=== PATIENT | male | born 1975 | race Caucasian/White ===

== ENCOUNTER 2022-07-23 00:57 | Inpatient (IN) | payer OTHER ==
[~2022-07-23] VITALS: Ht 188 cm; Wt 117.4 kg
[2022-07-23] VITALS (13 sets, daily range): BP systolic 120–143; BP diastolic 76–103
[2022-07-23 01:37] LABS: Basophils # (auto) 0 10 ^3/uL (0-0.2); Basophils % (auto) 0.3 % (0.0-2.0); Eosinophils # (auto) 0.2 10 ^3/uL (0-0.8); Eosinophils % (auto) 2.4 % (0.0-7.0); Hemoglobin 14.3 g/dL (13.5-17.5); Lymphocytes # (auto) 2.2 10 ^3/uL (0.4-5.4); Lymphocytes % (auto) 27.7 % (10.0-50.0); Mean Corpuscular Hemoglobin 27.3 pg (28.0-32.0); Mean Corpuscular Hgb Conc. 33.1 g/dL (32.0-36.0); Mean Corpuscular Volume 82.3 fL (80.0-100.0); Monocytes # (auto) 0.6 10 ^3/uL (0-1.3); Monocytes % (auto) 7.1 % (0.0-12.0); Neutrophils # (auto) 4.9 10 ^3/uL (1.6-8.6); Neutrophils % (auto) 62.5 % (37.0-80.0); Red Blood Cells 5.23 10^6/uL (4.5-5.90); Red Cell Distribution Width 17.2 % (11.8-14.3); White Blood Cell 7.8 10^3/uL (4.4-10.8)
[2022-07-23 01:51] LABS: Partial Thromboplastin Time 38.1 sec (24.6-33.4)
[2022-07-23 01:57] LABS: Albumin 3.4 g/dL (3.4-5.0); BUN/Creatinine Ratio 20.5 (10.0-20.0); Calcium 9.5 mg/dL (8.5-10.1); Potassium 3.7 mmol/L (3.5-5.1)
[2022-07-23 02:00] LABS: Bilirubin, Total 0.4 mg/dL (0.2-1.0); Total Protein 8.2 g/dL (6.4-8.2)
[2022-07-23] MEDS ORDERED: MAALOX PLUS or MAALOX 30 ML PO ONE (02:00)
[2022-07-23] MEDS ORDERED: PANTOPRAZOLE 40 MG TAB PO ONE (02:00)
[2022-07-23] MEDS ORDERED: LIDOCAINE VISCOUS 2% 15ML UD PO ONE (02:00)
[2022-07-23] MEDS ORDERED: HEPARIN SODIUM (PORCINE) 5000 UNITS/ML 1ML VIAL IV ONE (02:30)
[2022-07-23] MEDS ORDERED: HEPARIN DRIP/D5W 100UNITS/ML 250 ML IV SCH (02:30)
[2022-07-23] MEDS ORDERED: MORPHINE SULFATE INJ 2 MG/ml SYRG IV ONE (02:30)
[2022-07-23] MEDS ORDERED: NITROGLYCERIN 0.4 MG SL TAB SL ONE (02:30)
[2022-07-23] MEDS ORDERED: ONDANSETRON HCL 4 MG/2 ML VIAL IV PRN (02:45)
[2022-07-23] MEDS ORDERED: MORPHINE SULFATE INJ 2 MG/ml SYRG IV PRN (02:45)
[2022-07-23] MEDS ORDERED: NITROGLYCERIN 0.4 MG SL TAB SL PRN (02:45)
[2022-07-23 08:17] LABS: Urine Bacteria NONE SEEN /hpf (None Seen); Urine Blood 2+ /uL (Negative); Urine Hyaline Cast FEW /lpf (0 - 2); Urine Mucus FEW (None Seen); Urine Specific Gravity 1.026 (1.001-1.035); Urine WBC 2 /hpf (0 - 3)
[2022-07-23] MEDS ORDERED: ANGIOMAX 250 MG VIAL IV ONE (09:46)
[2022-07-23] MEDS ORDERED: fentaNYL CITRATE 100 MCG/2 ML VL ONE (09:47)
[2022-07-23] MEDS ORDERED: VERAPAMIL 2.5MG/ML INJ 2ML VIAL IV ONE (09:47)
[2022-07-23] MEDS ORDERED: SODIUM CHL 0.9% 50 ML ONE (09:48)
[2022-07-23] MEDS ORDERED: MIDAZOLAM HCL 2MG/2ML 2ml VIAL (1mg/ml) ONE (09:48)
[2022-07-23] MEDS ORDERED: HEPARIN SODIUM (PORCINE) 5000 UNITS/ML 1ML VIAL ONE (09:48)
[2022-07-23] MEDS ORDERED: LIDOCAINE 2%HCL (LOCAL ANESTH.) INJ 10ml MDV ONE (09:53)
[2022-07-23] MEDS ORDERED: IODIXANOL 320MG/ML 100ML BTL IV ONE (09:53)
[2022-07-23] MEDS ORDERED: EPTIFIBATIDE INJ (2MG/ML) 10ML VIAL IV ONE (10:46)
[2022-07-23] MEDS ORDERED: ASPirin 81 mg TAB ONE (10:51)
[2022-07-23] MEDS ORDERED: TICAGRELOR 90 MG TAB ONE (10:51)
[2022-07-23] MEDS: PANTOPRAZOLE 40 MG/10 ML VIAL INJ IV SCH (14:31)
[2022-07-23] MEDS ORDERED: ALPRAZolam 0.25 MG TAB PO PRN (16:15)
[2022-07-23] MEDS ORDERED: CLOPIDOGREL 300 MG TAB PO ONE (18:00)
[2022-07-23] MEDS: METOPROLOL TARTRATE 25 MG TAB PO SCH (21:43)
[2022-07-24 05:00] VITALS: BP 135/84
[2022-07-24 05:40] LABS: Basophils # (auto) 0 10 ^3/uL (0-0.2); Basophils % (auto) 0.4 % (0.0-2.0); Eosinophils # (auto) 0.2 10 ^3/uL (0-0.8); Hematocrit 44.5 % (41.0-53.0); Hemoglobin 14.7 g/dL (13.5-17.5); Lymphocytes # (auto) 1.8 10 ^3/uL (0.4-5.4); Lymphocytes % (auto) 24.5 % (10.0-50.0); Mean Corpuscular Volume 81.7 fL (80.0-100.0); Monocytes # (auto) 0.5 10 ^3/uL (0-1.3); Monocytes % (auto) 7.4 % (0.0-12.0); Neutrophils # (auto) 4.8 10 ^3/uL (1.6-8.6); Neutrophils % (auto) 65.7 % (37.0-80.0); Nucleated Red Blood Cells % 0.1 %; Red Blood Cells 5.45 10^6/uL (4.5-5.90); Red Cell Distribution Width 17.3 % (11.8-14.3); White Blood Cell 7.4 10^3/uL (4.4-10.8)
[2022-07-24 05:51] LABS: Albumin 2.9 g/dL (3.4-5.0); Calcium 8.9 mg/dL (8.5-10.1); Potassium 4.1 mmol/L (3.5-5.1)
[2022-07-24 05:55] LABS: BUN/Creatinine Ratio 19.1 (10.0-20.0); Bilirubin, Total 0.5 mg/dL (0.2-1.0); Total Protein 7.6 g/dL (6.4-8.2)
[2022-07-24 09:00] VITALS: BP 120/81
[2022-07-24] MEDS ORDERED: MET25T PO (09:14)
[2022-07-24] MEDS ORDERED: ASPI-543 PO (09:14)
[2022-07-24] MEDS ORDERED: CLOP75TA70 PO (09:14)
[2022-07-24] MEDS: PANTOPRAZOLE 40 MG/10 ML VIAL INJ IV SCH (09:18)
[2022-07-24] MEDS: METOPROLOL TARTRATE 25 MG TAB PO SCH (09:23)
[2022-07-24] MEDS ORDERED: ASPirin-EC 81 mg tab PO SCH (10:00)
[2022-07-24] MEDS ORDERED: CLOPIDOGREL BISULFATE 75 MG TAB PO SCH (10:00)
[2022-07-24] MEDS ORDERED: ATORVASTATIN 20 MG TAB PO SCH (22:00)
== END 2022-07-24 11:45 | disposition left against medical advice (07) | DRG 174 ==
LOC: ER 00:57 → TELE 02:41 → TELE-CENTR 15:55
PROVIDERS: ADMIT Nurse Practitioner; ATTEND Nurse Practitioner Acute Care
PROC: 027035Z Dilation of Coronary Artery, One Artery with Two Drug-eluting Intraluminal Devices, Percutaneous Approach (ICD-10-PCS; principal; 2022-07-23)
PROC: 4A023N7 Measurement of Cardiac Sampling and Pressure, Left Heart, Percutaneous Approach (ICD-10-PCS; 2022-07-23)
PROC: B211YZZ Fluoroscopy of Multiple Coronary Arteries using Other Contrast (ICD-10-PCS; 2022-07-23)
PROC: B215YZZ Fluoroscopy of Left Heart using Other Contrast (ICD-10-PCS; 2022-07-23)
DX: I21.4 Non-ST elevation (NSTEMI) myocardial infarction (principal); E66.01 Morbid (severe) obesity due to excess calories; I25.10 Atherosclerotic heart disease of native coronary artery without angina pectoris; Z20.822 Contact with and (suspected) exposure to COVID-19; I10 Essential (primary) hypertension; F15.10 Other stimulant abuse, uncomplicated; F17.210 Nicotine dependence, cigarettes, uncomplicated; Z53.29 Procedure and treatment not carried out because of patient's decision for other reasons; Z79.02 Long term (current) use of antithrombotics/antiplatelets; Z68.33 Body mass index [BMI] 33.0-33.9, adult
CPT/HCPCS: 36415; 71045; 80053; 80061; 81001; 83880; 84484; 85025; 85610; 85730; 86850; 86900; 86901; 87426; 93005; 93306; 96365; 96366; 96375; 96376; 99291; C9113; G0378; J2001; J2250; Q9967

== ENCOUNTER 2024-06-25 17:38 | Inpatient (IN) | payer OTHER ==
[~2024-06-25] VITALS: Ht 188 cm; Wt 87.5 kg
[~2024-06-25 17:38] MED LIST: ASPI-543 PO; CLOP75TA70 PO; MET25T PO
[2024-06-25 18:10] VITALS: PULSE 112; RESP 20; O2SAT 97
--- NOTE | 2024-06-25 18:17 | ED.PDOC ---
SOB-HPI HPI Comments 49Y M with PMHx HTN, HLD, CA s/p stent, presents to ED for chief complaint SOB x3-4 days. Additional symptoms include nonproductive cough, orthopnea, GRAYSON. Pt denies chest pain or fever. Pt states has never experienced SOB in the past, and is not on home O2. Upon ED arrival, SpO2 91% on RA and then increased to 93% after being placed on 2L/min O2. Pt states he is not on any medications and did not follow up with cardiology after the CA and stent placement. No other symptoms reported. Chief Complaint: Shortness of Breath Time Seen by MD: 18:05 Reviewed notes: Nurses Notes, Medications, Allergies Information Source: Patient Mode of Arrival: Wheelchair Severity: Moderate Timing: Days Duration: Since onset Context: At Rest PE Risk Factors: None History of: None Prehospital treatment: None Modifying Factors: Laying flat Associated Signs and Symptoms: Cough, Leg Swelling If cough with SOB: Non-Productive Past Medical History PAST MEDICAL HISTORY: COPD, High Lipids, HTN, CA Surgical History: PTCA Surgical History (Other): Orthopedic surgeries Family History Family History: Reviewed,noncontributory to illness Social History Smoker: Cigarettes, Less Than 1 Pack/Day Alcohol: Denies ETOH Use Drugs: Denies Drug Use Lives In: Home Constitutional: denies: chills, diaphoresis, fatigue, fever, malaise, sweats, weakness, others EENTM: denies: blurred vision, double vision, ear bleeding, ear discharge, ear drainage, ear pain, ear ringing, eye pain, eye redness, hearing loss, mouth pain, mouth swelling, nasal discharge, nose bleeding, nose congestion, nose pain, photophobia, tearing, throat pain, throat swelling, voice changes, others Respiratory: reports: cough, shortness of breath; denies: hemoptysis, orthopnea, SOB at rest, SOB with excertion, stridor, wheezing, others Cardiovascular: reports: edema; denies: chest pain, dizzy spells, diaphoresis, Dyspnea on exertion, irregular heart beat, left arm pain, lightheadedness, palpitations, PND, syncope, others Gastrointestinal: denies: abdomen distended, abdominal pain, blood streaked bowels, constipated, diarrhea, dysphagia, difficulty swallowing, hematemesis, melena, nausea, poor appetite, poor fluid intake, rectal bleeding, rectal pain, vomiting, others Genitourinary: denies: burning, dysuria, flank pain, frequency, hematuria, incontinence, penile discharge, penile sore, pain, testicle pain, testicle swelling, urgency, others Neurological: denies: dizziness, fainting, headache, left sided numbness, left sided weakness, numbness, paresthesia, pre-existing deficit, right sided numbness, right sided weakness, seizure, speech problems, tingling, tremors, weakness, others Musculoskeletal: denies: back pain, gout, joint pain, joint swelling, muscle pain, muscle stiffness, neck pain, others Integumetry: denies: bruises, change in color, change in hair/nails, dryness, laceration, lesions, lumps, rash, wounds, others Allergic/Immunocompromised: denies: Difficulty Healing, Frequent Infections, Hives, Itching, others Hematologic/Lymphatic: denies: anemia, blood clots, easy bleeding, easy bruising, swollen glands, others Endocrine: denies: excessive hunger, excessive sweating, excessive thirst, excessive urination, flushing, intolerance to cold, intolerance to heat, unexplained weight gain, unexplained weight loss, others Psychiatric: denies: anxiety, bipolar disorder, depression, hopeless, panic disorder, schizophrenia, sleepless, suicidal, others All Other Systems: Reviewed and Negative Physical Exam General Appearance: Mild Distress HEENT: PERRL/EOMI Neck: Full Range of Motion, Normal Inspection Respiratory: Accessory Muscle Use, Decreased Breath Sounds, Rales, Respiratory Distress Cardiovascular: No JVD, Regular Rate/Rhythm Breast Exam: Deferred Gastrointestinal: Non Tender, Soft Genitalia: Deferred Pelvic: Deferred Rectal: Deferred Extremities: Leg edema, Normal range of motion, Pedal edema Neurologic: Alert (Oriented x4), Normal Affect, Normal Mood, Other (Purposefully moves all extremities. No gross focal deficit.) Cerebellar Function: NOT DONE Reflexes: NOT DONE Skin: Dry, Normal Color, Warm Lymphatic: NOT DONE EKG EKG : Comments Sinus tach, rate 116, normal NH and QRS intervals, QTC prolonged at 471, left axis deviation, lateral ST depression with other nonspecific T changes. Was a procedure done? Was a procedure done?: No Differential Dx Differential Diagnosis: CHF, COPD, Myocardial infarction, Pneumonia, Pulmonary Embolism X-Ray, Labs, Meds, VS Vital Signs Date Time Temp Pulse Resp B/P (MAP) Pulse Ox O2 Delivery O2 Flow Rate FiO2 06/25/24 20:00 109 14 166/109 (128) 100 06/25/24 19:00 20 94 Nasal Cannula* 4 36 06/25/24 18:51 142/102 06/25/24 18:10 112 20 97 Nasal Cannula* 3 32 06/25/24 18:10 97.6 112 20 142/102 (115) 97 97.6 06/25/24 18:02 116 06/25/24 17:38 97.9 99 36 128/99 (109) 91 97.9 Lab Test 06/25/24 19:39 06/25/24 18:32 06/25/24 18:00 Range/Units Troponin I High Sensitivity 61 *H 62 *H </=54 ng/L White Blood Count 12.0 H 4.4-10.8 10^3/uL Red Blood Count 5.43 4.5-5.90 10^6/uL Hemoglobin 15.2 13.5-17.5 g/dL Hematocrit 46.2 41.0-53.0 % Mean Corpuscular Volume 85.0 80.0-100.0 fL Mean Corpuscular Hemoglobin 28.1 28.0-32.0 pg Mean Corpuscular Hemoglobin Concent 33.0 32.0-36.0 g/dL Red Cell Distribution Width 18.3 H 11.8-14.3 % Platelet Count 310 140-450 10^3/uL Mean Platelet Volume 8.2 6.9-10.8 fL Neutrophils (%) (Auto) 76.9 37.0-80.0 % Lymphocytes (%) (Auto) 16.0 10.0-50.0 % Monocytes (%) (Auto) 4.7 0.0-12.0 % Eosinophils (%) (Auto) 0.9 0.0-7.0 % Basophils (%) (Auto) 1.5 0.0-2.0 % Neutrophils # (Auto) 9.2 H 1.6-8.6 10 ^3/uL Lymphocytes # (Auto) 1.9 0.4-5.4 10 ^3/uL Monocytes # (Auto) 0.6 0-1.3 10 ^3/uL Eosinophils # (Auto) 0.1 0-0.8 10 ^3/uL Basophils # (Auto) 0.2 0-0.2 10 ^3/uL Nucleated Red Blood Cells 0.1 % Sodium Level 137 136-145 mmol/L Potassium Level 4.4 3.5-5.1 mmol/L Chloride Level 105 98-107 mmol/L Carbon Dioxide Level 21 20-31 mmol/L Anion Gap 11 5-15 Blood Urea Nitrogen 21 9-23 mg/dL Creatinine 0.88 0.700-1.30 mg/dL Glomerular Filtration Rate Calc 104 >90 mL/min BUN/Creatinine Ratio 23.9 H 10.0-20.0 Serum Glucose 102 74-106 mg/dL Calcium Level 9.2 8.7-10.4 mg/dL Total Bilirubin 1.1 H 0.2-1.0 mg/dL Aspartate Amino Transferase (AST) 250 H 13-40 U/L Alanine Aminotransferase (ALT) 270 H 7-40 U/L Alkaline Phosphatase 197 H 46-116 U/L B-Type Natriuretic Peptide 1784.98 0-100 pg/mL Total Protein 7.9 5.7-8.2 g/dL Albumin 3.5 3.2-4.8 g/dL Urine Color Yellow Yellow Urine Clarity Clear Clear Urine pH 5.5 5.0-9.0 Urine Specific [place] 1.014 1.001-1.035 Urine Protein Trace H Negative Urine Ketones Negative Negative Urine Blood Negative Negative /uL Urine Nitrite Negative Negative Urine Bilirubin Negative Negative Urine Urobilinogen 3 H Negative mg/dL Urine Leukocyte Esterase Negative Negative /uL Urine RBC 1 0 - 3 /hpf Urine Microscopic WBC 4 H 0-3 /HPF Urine Squamous Epithelial Cells None seen <5 /hpf Urine Bacteria None seen None Seen /hpf Urine Glucose Normal Normal mg/dL Current Medications Medications (Trade) Dose Ordered Sig/Pebbles Route Start Time Stop Time Status Last Admin Albuterol (Ventolin Medneb) 5 mg ONCE ONCE NEB 06/25/24 18:30 06/25/24 18:31 DC 06/25/24 19:16 Ipratropium [place] (Atrovent Medneb) 0.5 mg ONCE ONCE NEB 06/25/24 18:30 06/25/24 18:31 DC 06/25/24 19:16 Methylprednisolone Sodium Succinate (Solu Medrol) 125 mg ONCE ONCE IV 06/25/24 18:30 06/25/24 18:31 DC 06/25/24 18:50 Furosemide (Lasix Injection) 40 mg ONCE ONCE IV 06/25/24 18:30 06/25/24 18:31 DC 06/25/24 18:51 ORDERING PHYSICIAN: KIP KASPER MD PROCEDURE(s): CXRP - CHEST PORTABLE REASON: sob ORDER NUMBER(s): [id number], ACCESSION NUMBER(s): [id number] EXAM: XY CHEST PORTABLE TECHNIQUE: Single frontal chest radiograph CLINICAL HISTORY: sob COMPARISON: XY CHEST PORTABLE on DOS: 07/23/22 Findings/Impression: Frontal chest radiograph demonstrates no acute osseous or superficial soft tissue abnormalities. The trachea is midline. Mild cardiomegaly with pulmonary vascular congestion. No pneumothorax, pleural effusions, or consolidations. X-Ray, Labs, Meds, VS Comment 49-year-old male with a history of COPD, hypertension, CAD status post stent and dyslipidemia complaining of shortness a breath, dyspnea on exertion, orthopnea a nd lower extremity edema Vitals remarkable for heart rate 116, respiratory rate 36, BP 142/102, oxygen saturation 91% on room air Exam remarkable for tachycardia, respiratory distress, bibasilar rales and diminished breath sounds, bilateral lower extremity edema Rhythm strip independently interpreted by me: Sinus tach, rate 116, no ectopy. Chest x-ray Findings/Impression: Frontal chest radiograph demonstrates no acute osseous or superficial soft tissue abnormalities. The trachea is midline. Mild cardiomegaly with pulmonary vascular congestion. No pneumothorax, pleural effusions, or consolidations. CBC remarkable for WBC 12, CMP remarkable for total bilirubin 1.1, AST 250, ALT 270, alkaline phos 197 Serial troponins 62 and 61, BNP 1784.98 Patient treated with the following in the ED: Albuterol 5 mg/Atrovent 0.5 mg nebulized, Solu-Medrol 125 mg IV, Lasix 40 mg IV, nitro bid 1 in to chest wall, aspirin 325 mg p.o. On re-evaluation, patient states respiratory difficulty has improved, oxygen saturation is 94% on 3 L nasal cannula, and the patient is no longer in respiratory distress. Plan is to admit the patient for diuresis, respiratory support as needed and Cardiology evaluation. Time of 1ST Reevaluation: 18:35 Reevaluation 1ST: Unchanged Time of 2ND Reevaluation: 21:50 Reevaluation 2ND: Improved Patient Education/Counseling: Diagnosis, Treatment Family Education/Counseling: No Family Present Departure 1 Departure Time of Disposition: 21:50 Impression: Primary Impression: New onset of congestive heart failure Additional Impressions: Non-STEMI (non-ST elevated myocardial infarction) COPD exacerbation Disposition: ADMITTED INPATIENT Admit to: [facility] Condition: Guarded Critical Care Note Critical Care Time?: Yes (35 min-critical care time only) Critical care comment: Critical care time including multiple bedside re-evaluations, review of lab and imaging studies, and discussion of the case with the admitting provider. Patient is high risk for hemodynamic and/or respiratory decompensation. Stability Stability form required: No Heart Score Heart Score: Heart Score Response (Comments) Value History Slightly Suspicious [address]-Deviation 2 Age 45-64 1 Risk Factors >3 or Hx ASHD 2 Troponin 1-2 x's Normal limit 1 Total 6 I personally scribed for KIP KASPER MD ([facility] on 06/25/24 at 18:17. Electronically submitted by Mayi Zheng ([employer]). I personally scribed for KIP KASPER MD ([email or web address]) on 06/25/24 at 18:59. Electronically submitted by Mayi Zheng ([employer]). KIP KASPER MD Jun 25, 2024 18:17
--- NOTE | 2024-06-25 18:49 | DVH ---
EXAM: XY CHEST PORTABLE TECHNIQUE: Single frontal chest radiograph CLINICAL HISTORY: sob COMPARISON: XY CHEST PORTABLE on DOS: 07/23/22 Findings/Impression: Frontal chest radiograph demonstrates no acute osseous or superficial soft tissue abnormalities. The trachea is midline. Mild cardiomegaly with pulmonary vascular congestion. No pneumothorax, pleural effusions, or consolidations.
[2024-06-25] MEDS: methylPREDNISolone SOD SUCC 125 MG/2 ML VL IV ONE (18:50)
[2024-06-25] MEDS: FUROSEMIDE 40 MG/4 ML VIAL IV ONE (18:51)
[2024-06-25] MEDS ORDERED: IPRATROPIUM BROM 0.5 MG/2.5ML INH SOL NEB ONE (19:00)
[2024-06-25] MEDS ORDERED: FUROSEMIDE 40 MG/4 ML VIAL IV ONE (19:00)
[2024-06-25] MEDS ORDERED: ALBUTEROL SULF 2.5 MG/0.5ML(0.5%) NEB SOLN NEB ONE (19:00)
[2024-06-25] MEDS ORDERED: methylPREDNISolone SOD SUCC 125 MG/2 ML VL IV ONE (19:00)
[2024-06-25 19:07] LABS: Basophils # (auto) 0.2 10 ^3/uL (0-0.2); Basophils % (auto) 1.5 % (0.0-2.0); Eosinophils # (auto) 0.1 10 ^3/uL (0-0.8); Eosinophils % (auto) 0.9 % (0.0-7.0); Hematocrit 46.2 % (41.0-53.0); Hemoglobin 15.2 g/dL (13.5-17.5); Lymphocytes # (auto) 1.9 10 ^3/uL (0.4-5.4); Mean Corpuscular Hemoglobin 28.1 pg (28.0-32.0); Monocytes # (auto) 0.6 10 ^3/uL (0-1.3); Monocytes % (auto) 4.7 % (0.0-12.0); Neutrophils # (auto) 9.2 10 ^3/uL (1.6-8.6); Neutrophils % (auto) 76.9 % (37.0-80.0); Nucleated Red Blood Cells % 0.1 %; Platelet Count (auto) 310 10^3/uL (140-450); Red Blood Cells 5.43 10^6/uL (4.5-5.90); Red Cell Distribution Width 18.3 % (11.8-14.3)
[2024-06-25 19:08] LABS: Anion Gap 11 (5-15); BUN/Creatinine Ratio 23.9 (10.0-20.0); Blood Urea Nitrogen 21 mg/dL (9-23); Calcium 9.2 mg/dL (8.7-10.4); Carbon Dioxide 21 mmol/L (20-31); Chloride 105 mmol/L (98-107); Glucose 102 mg/dL (74-106); Potassium 4.4 mmol/L (3.5-5.1); Sodium 137 mmol/L (136-145); Total Protein 7.9 g/dL (5.7-8.2)
[2024-06-25 19:09] LABS: Albumin 3.5 g/dL (3.2-4.8); Bilirubin, Total 1.1 mg/dL (0.2-1.0)
[2024-06-25] MEDS: IPRATROPIUM BROM 0.5 MG/2.5ML INH SOL NEB ONE (19:16)
[2024-06-25] MEDS: ALBUTEROL SULF 2.5 MG/0.5ML(0.5%) NEB SOLN NEB ONE (19:16)
[2024-06-25 19:17] LABS: Alanine Aminotransferase 270 U/L (7-40); Alkaline Phosphatase 197 U/L (46-116); Aspartate Aminotransferase 250 U/L (13-40)
[2024-06-25 19:40] VITALS: PULSE 112; RESP 25; O2SAT 100
[2024-06-25 20:08] LABS: Urine Bacteria None Seen /hpf (None Seen)
[2024-06-25 20:43] LABS: Urine Blood Negative /uL (Negative); Urine Clarity Clear (Clear); Urine Color Yellow (Yellow); Urine Protein, UAD TRACE (Negative); Urine Specific Gravity 1.014 (1.001-1.035); Urine Squamous Epithelial Cell None Seen /hpf (<5); Urine Urobilinogen 3 mg/dL (Negative); Urine WBC 4 /HPF (0-3); Urine pH 5.5 (5.0-9.0)
--- NOTE | 2024-06-25 21:11 | ECG ---
[facility] Test Date: 2024-06-25 Test Time: 18:02:50 Pat Name: MENDY DUMONT Department: ER Room: 0237T Gender: M Director Of Leadership Development: ALVARO : 1975 Requested By: KIP ASHLEY Order Number: [id number] Reading MD: Reji Todd Measurements Intervals [place] Rate: 116 P: 14 TN: 154 QRS: 23 QRSD: 99 T: -74 QT: 339 QTc: 471 Interpretive Statements Sinus tachycardia Probable left atrial enlargement Borderline T abnormalities, diffuse leads Baseline wander in lead(s) V2 Electronically Signed On 06-26-2024 19:21:25 PDT by Reji Todd Please click the below link to view image of tracing.
[2024-06-25] MEDS: ASPirin 325 MG TAB PO ONE (22:21)
[2024-06-25] MEDS: NITROGLYCERIN 2% OINT 1GM PKG TD ONE (22:23)
[2024-06-25] MEDS: LOSARTAN POTASSIUM 25 MG TAB PO ONE (23:24)
--- NOTE | 2024-06-25 23:44 | DVHHPRES ---
History of Present Illness Resident Creating Document: KASSIEFALLONJEROME AVINABALAJI RESDIENT History of Present Illness Nick Piper this is a 49-year-old male patient who presents to the ED with chief complaint of progressive dyspnea from functional class II to functional class IV 4-5 days before his admission, associated with nonproductive cough. He denies any associated symptoms, including fever, chills, chest pain, palpitation, syncope, nausea, vomiting, diarrhea, sick contacts and motor or sensory deficits. 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 Current tobacco abuse (approximately 20 pack-year history of smoking). Patient denies alcohol and other drug abuse. UDS positive for methamphetamine Allergies: Denies Home medication: Metoprolol 25 mg p.o. b.i.d., aspirin 81 mg p.o. daily, clopidogrel 75 mg p.o. daily Patient seen and examined at bedside. Currently still complains of dyspnea, which mildly improved since admission. Swab positive for influenza B, we will isolate patient and start oseltamivir. Past Medical History See HPI Past Surgical History See HPI Family History See HPI Past Social History See HPI Review of Systems Allergies: Coded Allergies: NO KNOWN ALLERGIES (Unverified , 07/23/22) Medications Current Medications Medications Dose Ordered Sig/Pebbles Route Start Time Stop Time Status Last Admin Dose Admin Losartan Potassium 50 mg DAILY PO 06/26/24 10:00 UNV Losartan Potassium 25 mg DAILY PO 06/26/24 10:00 UNV Ipratropium [place] 0.5 mg Q6HWA NEB 06/26/24 06:00 Levalbuterol HCl 0.625 mg Q6HR NEB 06/26/24 00:00 Furosemide 40 mg BIDD IV 06/26/24 06:00 Exam Vital Signs Vital Signs Date Time Temp Pulse Resp B/P (MAP) Pulse Ox O2 Delivery O2 Flow Rate FiO2 06/25/24 23:24 144/109 06/25/24 22:00 97.7 112 25 100 97.7 06/25/24 19:40 Nasal Cannula* 3 32 Exam Patient lying in bed, in no acute distress General: Lucid, afebrile, mucosae are moist Cardiovascular: Tachycardic, Normal S1 and S2. No murmurs, gallops or rubs Respiratory: Normal ventilation mechanics. Bibasilar crackles, rest of lung auscultation is clear Abdomen: Soft, nontender, no organomegaly, normal bowel sounds MSK/skin: Mobilizes 4 limbs. Skin is dry and warm Neurological: Oriented in 3 spheres. No motor no sensitive deficits. Pupils are isocoric and reactive Labs/Xrays Labs Test 06/25/24 19:39 06/25/24 18:32 06/25/24 18:00 Range/Units Troponin I High Sensitivity 61 *H </=54 ng/L White Blood Count 12.0 H 4.4-10.8 10^3/uL Red Blood Count 5.43 4.5-5.90 10^6/uL Hemoglobin 15.2 13.5-17.5 g/dL Hematocrit 46.2 41.0-53.0 % Mean Corpuscular Volume 85.0 80.0-100.0 fL Mean Corpuscular Hemoglobin 28.1 28.0-32.0 pg Mean Corpuscular Hemoglobin Concent 33.0 32.0-36.0 g/dL Red Cell Distribution Width 18.3 H 11.8-14.3 % Platelet Count 310 140-450 10^3/uL Mean Platelet Volume 8.2 6.9-10.8 fL Neutrophils (%) (Auto) 76.9 37.0-80.0 % Lymphocytes (%) (Auto) 16.0 10.0-50.0 % Monocytes (%) (Auto) 4.7 0.0-12.0 % Eosinophils (%) (Auto) 0.9 0.0-7.0 % Basophils (%) (Auto) 1.5 0.0-2.0 % Neutrophils # (Auto) 9.2 H 1.6-8.6 10 ^3/uL Lymphocytes # (Auto) 1.9 0.4-5.4 10 ^3/uL Monocytes # (Auto) 0.6 0-1.3 10 ^3/uL Eosinophils # (Auto) 0.1 0-0.8 10 ^3/uL Basophils # (Auto) 0.2 0-0.2 10 ^3/uL Nucleated Red Blood Cells 0.1 % Sodium Level 137 136-145 mmol/L Potassium Level 4.4 3.5-5.1 mmol/L Chloride Level 105 98-107 mmol/L Carbon Dioxide Level 21 20-31 mmol/L Anion Gap 11 5-15 Blood Urea Nitrogen 21 9-23 mg/dL Creatinine 0.88 0.700-1.30 mg/dL Glomerular Filtration Rate Calc 104 >90 mL/min BUN/Creatinine Ratio 23.9 H 10.0-20.0 Serum Glucose 102 74-106 mg/dL Calcium Level 9.2 8.7-10.4 mg/dL Total Bilirubin 1.1 H 0.2-1.0 mg/dL Aspartate Amino Transferase (AST) 250 H 13-40 U/L Alanine Aminotransferase (ALT) 270 H 7-40 U/L Alkaline Phosphatase 197 H 46-116 U/L B-Type Natriuretic Peptide 1784.98 0-100 pg/mL Total Protein 7.9 5.7-8.2 g/dL Albumin 3.5 3.2-4.8 g/dL Urine Color Yellow Yellow Urine Clarity Clear Clear Urine pH 5.5 5.0-9.0 Urine Specific [place] 1.014 1.001-1.035 Urine Protein Trace H Negative Urine Ketones Negative Negative Urine Blood Negative Negative /uL Urine Nitrite Negative Negative Urine Bilirubin Negative Negative Urine Urobilinogen 3 H Negative mg/dL Urine Leukocyte Esterase Negative Negative /uL Urine RBC 1 0 - 3 /hpf Urine Microscopic WBC 4 H 0-3 /HPF Urine Squamous Epithelial Cells None seen <5 /hpf Urine Bacteria None seen None Seen /hpf Urine Glucose Normal Normal mg/dL Assessment/Plan Assessment/Plan Assessment: Acute hypoxic respiratory failure , likely due to failure exacerbation/influenza 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 Hold atorvastatin due to transaminitis clear Optimize antihypertensive medication (currently on losartan amlodipine). Due to positive methamphetamine hold beta-blockers Ordered abdominal ultrasound and acute hepatitis panel Counseled patient on polysubstance abuse Goals of care discussed with patient for over 18 minutes: Full code status Discussed plan with Dr. Hurtado, patient and nurses: Continue with oxygen therapy, IV diuretics, bronchodilators and antiviral medication. Plan discussed with: Patient, Other (rn) My Orders Orders - ANIBAL PATE RESDIMARLENE Procedure Category Date Status Time Admit ADMIT 06/25/24 Verified 23:39 Code Status CODE 06/25/24 Verified 23:39 Vital Signs [facility] 06/25/24 Verified 23:39 Review Orders With [facility] 06/25/24 Verified Adm. 23:39 Notify Md Of Changes [facility] 06/25/24 Verified From Base 23:39 Advance Directive [facility] 06/25/24 Verified 23:39 Urinalysis LAB 06/25/24 Verified 23:39 Lipid Panel LAB 06/25/24 Verified 23:39 Blood Culture [facility] 06/25/24 Verified 23:39 Patient Condition ORDERS 06/25/24 Verified 23:39 Allergies [facility] 06/25/24 Verified 23:39 Drug Screen LAB 06/25/24 Verified 23:39 Hemoglobin A1c LAB 06/25/24 Verified 23:[address] [facility] 06/26/24 Verified 10:00 Oxygen By Nasal RT 06/25/24 Verified Cannula 23:39 Stat Ekg For Chest [facility] 06/25/24 Verified Pain 23:39 Notify Of Changes [facility] 06/25/24 Verified From Base 23:39 Chain Machine Operator For [facility] 06/25/24 Verified 24 Hours 23:39 Emergency Dysrhythmia [facility] 06/25/24 Verified Protocol 23:39 Rhythm Strips Once [facility] 06/25/24 Verified Every Shift 23:39 Aspirin Tablet PH[facility] 06/26/24 Verified 10:00 Atorvastatin (Lipitor) PHA 06/26/24 Verified 22:00 Atorvastatin (Lipitor) PHA 06/25/24 Verified 23:45 Cardiac DIET 06/26/24 Verified Diet-2gna,Lofat,Lochol Breakfast Complete Blood Count LAB 06/26/24 Verified 04:00 Comprehensive LAB 06/26/24 Verified Metabolic Panel 04:00 PTPTT LAB 06/26/24 Verified 04:00 LIVER US 06/25/24 Verified 23:39 Date of Service: Jun 25, 2024 Billing Provider: BEBETO HURTADO MD Common Visit Codes: [id number] INP/OBS CARE (HIGH) ANIBAL PATE RESDIMARLENE Jun 25, 2024 23:44 SAY RICHARDSON Jun 26, 2024 03:54 BEBETO HURTADO MD Jun 26, 2024 11:41
[2024-06-26] VITALS (17 sets, daily range): BP systolic 112–164; BP diastolic 78–110; PULSE 99–112; RESP 15–50; TEMP 97.2–98; O2SAT 90–100
[2024-06-26 00:15] LABS: Triglycerides 83 mg/dL (< 150)
[2024-06-26 00:16] LABS: LDL Cholesterol 85 mg/dL (< 100)
[2024-06-26 00:17] LABS: Cholesterol 106 mg/dL (< 200); HDL Cholesterol 14 mg/dL (40-59)
[2024-06-26 00:24] LABS: Cannabinoid Screen, Urine Neg (NEGATIVE)
[2024-06-26 00:37] LABS: Amphetamine Screen, Urine Pos (NEGATIVE); Barbiturate Scree,Urine Neg (NEGATIVE); Benzodiazephine Screen, Urine Neg (NEGATIVE); Cocaine Screen, Urine Neg (NEGATIVE); Opiate Scree,Urine Neg (NEGATIVE); Phencyclidine Screen, Urine Neg (NEGATIVE)
[2024-06-26] MEDS: ATORVASTATIN 20 MG TAB PO ONE (00:42)
[2024-06-26 00:57] LABS: COVID19 ANTIGEN SOFIA FIA NEGATIVE (NEGATIVE)
[2024-06-26 00:58] LABS: Rapid Influenza A Negative (Negative)
[2024-06-26 01:02] LABS: Rapid Influenza B Positive (Negative)
--- NOTE | 2024-06-26 01:23 | DVH ---
INDICATION: Transaminitis TECHNIQUE: Multiple real-time sonographic images were obtained of the right upper quadrant. COMPARISON: None FINDINGS: The liver measures 15 cm with heterogeneous echotexture without focal mass lesions. There is no intrahepatic or extrahepatic ductal dilatation. The common duct measures 0.3 cm. The gallbladder is without evidence of stone or sludge. The gallbladder wall measures 0.3 cm and is within normal limits. The right kidney measures 11 cm. The right kidney is normal in contour, size, and shape. The echoge nicity is normal. There is no hydronephrosis. The pancreas is not well visualized due to overlying bowel gas. Bilateral pleural effusion seen. Sma ll ascites noted IMPRESSION: Hepatic steatosis disease.. Bilateral pleural effusions. Small ascites.
[2024-06-26] MEDS: OSELTAMIVIR 75 MG CAP PO ONE (02:02)
[2024-06-26] MEDS: LEVALBUTEROL HCL 1.25 MG/3 ML NEB NEB SCH (03:21)
[2024-06-26] MEDS: amLODIPine BESYLATE 5 MG TAB PO ONE (04:40)
[2024-06-26] MEDS: FUROSEMIDE 40 MG/4 ML VIAL IV SCH (06:56)
[2024-06-26 08:16] LABS: Basophils # (auto) 0 10 ^3/uL (0-0.2); Basophils % (auto) 0.2 % (0.0-2.0); Eosinophils # (auto) 0 10 ^3/uL (0-0.8); Hematocrit 41.6 % (41.0-53.0); Hemoglobin 13.8 g/dL (13.5-17.5); Lymphocytes # (auto) 0.6 10 ^3/uL (0.4-5.4); Lymphocytes % (auto) 4.8 % (10.0-50.0); Mean Corpuscular Hgb Conc. 33.2 g/dL (32.0-36.0); Mean Corpuscular Volume 84.3 fL (80.0-100.0); Monocytes # (auto) 0.2 10 ^3/uL (0-1.3); Monocytes % (auto) 1.8 % (0.0-12.0); Neutrophils # (auto) 12.2 10 ^3/uL (1.6-8.6); Neutrophils % (auto) 93.2 % (37.0-80.0); Platelet Count (auto) 301 10^3/uL (140-450); Red Blood Cells 4.93 10^6/uL (4.5-5.90); Red Cell Distribution Width 17.9 % (11.8-14.3); White Blood Cell 13.1 10^3/uL (4.4-10.8)
[2024-06-26 08:31] LABS: INR 1.38 (0.9-1.15); Partial Thromboplastin Time 28.2 SEC (24.5-34.5); Prothrombin Time 14.2 sec (9.3-11.8)
[2024-06-26 08:35] LABS: Anion Gap 10 (5-15); BUN/Creatinine Ratio 19.4 (10.0-20.0); Blood Urea Nitrogen 18 mg/dL (9-23); Carbon Dioxide 23 mmol/L (20-31); Chloride 103 mmol/L (98-107); Potassium 3.7 mmol/L (3.5-5.1)
[2024-06-26 08:36] LABS: Bilirubin, Total 0.9 mg/dL (0.2-1.0)
[2024-06-26 08:40] LABS: Alanine Aminotransferase 211 U/L (7-40); Albumin 3.2 g/dL (3.2-4.8); Alkaline Phosphatase 173 U/L (46-116); Aspartate Aminotransferase 135 U/L (13-40); Calcium 8.5 mg/dL (8.7-10.4); Glucose 137 mg/dL (74-106); Sodium 136 mmol/L (136-145)
[2024-06-26] MEDS: IPRATROPIUM BROM 0.5 MG/2.5ML INH SOL NEB SCH (09:11)
[2024-06-26] MEDS: ASPirin 81 mg TAB PO SCH (09:29)
[2024-06-26] MEDS: ENOXAPARIN SOD 40 MG/0.4 ML SYRINGE SC SCH (09:29)
[2024-06-26] MEDS: OSELTAMIVIR 75 MG CAP PO SCH (09:30)
[2024-06-26] MEDS: LOSARTAN POTASSIUM 25 MG TAB PO SCH (09:30)
[2024-06-26] MEDS: amLODIPine BESYLATE 5 MG TAB PO SCH (09:30)
[2024-06-26] MEDS ORDERED: LOSARTAN POTASSIUM 50 MG TAB PO SCH ×2 (10:00)
[2024-06-26] MEDS ORDERED: LISI2.5T47 PO (12:57)
--- NOTE | 2024-06-26 13:23 | DVHPN2 ---
Reviewed: Care Plan, H&P, Labs, Medications, Previous Orders, Radiology Changes from previous H/P or p: No Changes Objective Vitals Vital Signs Date Time Temp Pulse Resp B/P (MAP) Pulse Ox O2 Delivery O2 Flow Rate FiO2 06/26/24 11:47 97.9 104 15 136/83 (100) 99 97.9 06/26/24 10:00 Nasal Cannula 3.0 06/26/24 10:00 32 Intake/Output Intake and Output 06/26/24 07:00 Intake Total 240 ml Output Total 0 ml Balance 240 ml Intake Oral 240 ml Output Urine Total 0 ml Medications Current Medications Medications Dose Ordered Sig/Pebbles Route Start Time Stop Time Status Last Admin Dose Admin Losartan Potassium 25 mg DAILY PO 06/26/24 10:00 06/26/24 09:30 25 MG Ipratropium [place] 0.5 mg Q6HWA NEB 06/26/24 06:00 06/26/24 09:11 0.5 MG Levalbuterol HCl 0.625 mg Q6HR NEB 06/26/24 00:00 06/26/24 09:11 0.625 MG Furosemide 40 mg BIDD IV 06/26/24 06:00 06/26/24 06:56 40 MG Enoxaparin Sodium 40 mg DAILY SC 06/26/24 10:00 06/26/24 09:29 40 MG Aspirin 81 mg DAILY PO 06/26/24 10:00 06/26/24 09:29 81 MG Oseltamivir Phosphate 75 mg Q12HR PO 06/26/24 10:00 07/01/24 09:59 06/26/24 09:30 75 MG Amlodipine Besylate 10 mg DAILY PO 06/26/24 10:00 06/26/24 09:30 10 MG Laboratory Results Laboratory Tests 06/26/24 07:08 Chemistry Test 06/25/24 18:32 06/26/24 07:08 Albumin 3.5 g/dL (3.2-4.8) 3.2 g/dL (3.2-4.8) Calcium Level 9.2 mg/dL (8.7-10.4) 8.5 mg/dL (8.7-10.4) L Total Protein 7.9 g/dL (5.7-8.2) 7.0 g/dL (5.7-8.2) Coagulation Test 06/26/24 07:08 Prothrombin Time 14.2 sec (9.3-11.8) H Prothrombin Time INR 1.38 (0.9-1.15) H Activated Partial Thromboplast Time 28.2 SEC (24.5-34.5) Lipid panel Test 06/25/24 19:39 Cholesterol Level 106 mg/dL (< 200) HDL Cholesterol 14 mg/dL (40-59) L Triglycerides Level 83 mg/dL (< 150) Cardiac Markers Test 06/25/24 18:32 B-Type Natriuretic Peptide 1784.98 pg/mL (0-100) LFT Test 06/25/24 18:32 06/26/24 07:08 Alanine Aminotransferase (ALT) 270 U/L (7-40) H 211 U/L (7-40) H Alkaline Phosphatase 197 U/L (46-116) H 173 U/L (46-116) H Aspartate Amino Transferase (AST) 250 U/L (13-40) H 135 U/L (13-40) H Total Bilirubin 1.1 mg/dL (0.2-1.0) H 0.9 mg/dL (0.2-1.0) HgA1c, TSH Test 06/25/24 18:32 Hemoglobin A1c 5.4 % A1C (<5.7) Urinalysis Test 06/25/24 18:00 Urine Color Yellow (Yellow) Urine Clarity Clear (Clear) Urine pH 5.5 (5.0-9.0) Urine Specific [place] 1.014 (1.001-1.035) Urine Protein Trace (Negative) H Urine Ketones Negative (Negative) Urine Blood Negative /uL (Negative) Urine Nitrite Negative (Negative) Urine Bilirubin Negative (Negative) Urine Urobilinogen 3 mg/dL (Negative) H Urine Leukocyte Esterase Negative /uL (Negative) Urine RBC 1 /hpf (0 - 3) Urine Microscopic WBC 4 /HPF (0-3) H Urine Squamous Epithelial Cells None seen /hpf (<5) Urine Bacteria None seen /hpf (None Seen) Urine Glucose Normal mg/dL (Normal) Labs and/or images reviewed: Labs reviewed by me, Image(s) reviewed by me Assessment/Plan Assessment/Plan Acute hypoxic respiratory failure , likely due to failure CHF exacerbation/influenza 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
[2024-06-26] MEDS: cefTRIAXone 1GM/50ML D5W 50 ML IV ONE (14:05)
[2024-06-26] MEDS: AZITHROMYCIN 500MG/ 250ML 250 ML IV ONE (15:29)
--- NOTE | 2024-06-26 16:03 | DVHINCON2 ---
Date Seen: Jun 26, 2024 Referring Physician Heaven Fuentes Reason for Consultation CHF History of Present Illness 49-year-old male with PMH for CHF, cardiomyopathy, CAD s/p stent to LCX 07/2022, medication noncompliance, amphetamine abuse presents to the hospital with increased lower extremity edema, worsening shortness of breath. Upon evaluation in the ER patient noted to be hypoxic on room air. Troponins trending 62, 61. BNP 1784. AST 250, ALT 270, alk-phos 197. Positive for influenza B. CXR showing mild pulmonary congestion, cardiomegaly. Patient endorses that he took all his medications already and is not taking anything at this time. Continues to smoke tobacco and occasional use of amphetamines. EKG reviewed and shows sinus tachycardia at 116 beats per minute, no significant ST and T-wave abnormality. Past Medical History Cardiomyopathy, CHF, CAD s/p MICHELLE stent x1, medication noncompliance, amphetamine abuse, HTN, HLD, Past Surgical History Cardiac Catheterization s/p MICHELLE LCx 07/2022 Family History: Arthritis G8 MOTHER G8 FATHER Family History Denies pertinent family cardiac history Social History Continues to smoke tobacco, intermittent use of amphetamines positive on UDS. Allergies: Coded Allergies: NO KNOWN ALLERGIES (Unverified , 07/23/22) Home Meds Active Scripts Aspirin (Aspir-Low) 81 Mg Tab, 81 MG PO DAILY for 90 Days, #90 TAB Prov:LAURA SUTHERLAND FISHER QUAHOG 07/24/22 Reported Medications Lisinopril (Lisinopril) 2.5 Mg Tab, 1 TAB PO DAILY, #30 TAB 5 Refills 06/26/24 Current Medications Current Medications Medications (Trade) Dose Ordered Sig/Pebbles Route PRN Reason Start Time Stop Time Status Last Admin Losartan Potassium (Cozaar Tablet) 50 mg BID PO 06/26/24 10:00 06/25/24 23:19 DC Losartan Potassium (Cozaar Tablet) 50 mg DAILY PO 06/26/24 10:00 06/25/24 23:44 DC Losartan Potassium (Cozaar Tablet) 25 mg DAILY PO 06/26/24 10:00 06/26/24 09:30 Ipratropium [place] (Atrovent Medneb) 0.5 mg Q6HWA NEB 06/26/24 06:00 06/26/24 13:50 Levalbuterol HCl (Xopenex Medneb) 0.625 mg Q6HR NEB 06/26/24 00:00 06/26/24 13:50 Furosemide (Lasix Injection) 40 mg BIDD IV 06/26/24 06:00 06/26/24 06:56 Enoxaparin Sodium (Lovenox) 40 mg DAILY SC 06/26/24 10:00 06/26/24 09:29 Aspirin 81 mg DAILY PO 06/26/24 10:00 06/26/24 09:29 Atorvastatin Calcium (Lipitor) 20 mg HS PO 06/26/24 22:00 06/25/24 23:57 DC Oseltamivir Phosphate (Tamiflu 75MG Capsule) 75 mg Q12HR PO 06/26/24 10:00 07/01/24 09:59 06/26/24 09:30 Amlodipine Besylate (Norvasc Tablet) 10 mg DAILY PO 06/26/24 10:00 06/26/24 09:30 Ceftriaxone Sodium 50 ml @ 100 mls/hr DAILY@09 IV 06/27/24 09:00 Azithromycin 250 ml @ 125 mls/hr DAILY IV 06/27/24 10:00 Review of Systems Constitutional: No: Fever, Chills, Sweats, Weakness, Malaise, Other Eyes: No: Pain, Vision change, Conjunctivae inflammation, Eyelid inflammation, Other, Redness ENT: No: Ear pain, Ear discharge, Nose pain, Nose discharge, Nose congestion, Mouth pain, Mouth swelling, Throat pain, Throat swelling, Other Respiratory: No: Cough, Dry, , Wheezing, Hemoptysis, Pleuritic Pain, Sputum, Wheezing, Other positive: Shortness of breath, SOB with exertion Cardiovascular: ; No: Palpitations, Orthopnea, Paroxysmal Noc. , Lt Headedness, Other positive: Chest Pain, Dyspnea, Edema Gastrointestinal: No: Nausea, Vomiting, Abdominal Pain, Diarrhea, Constipation, Melena, Hematochezia, Other Genitourinary: No Dysuria, No Frequency, No Incontinence, No Hematuria, No Retention, No Other Musculoskeletal: neck pain; No: other, shoulder pain, arm pain, back pain, hand pain, leg pain, foot pain Skin: No: Rash, Lesions, Jaundice, Bruising, Other Neurological: Other (Dizziness, headache.); No: Weakness, Numbness, Incoordination, Change in speech, Confusion, Seizures Vital Signs Vital Signs Date Time Temp Pulse Resp B/P (MAP) Pulse Ox O2 Delivery O2 Flow Rate FiO2 06/26/24 13:58 110 16 99 06/26/24 13:50 Nasal Cannula* 3 32 06/26/24 11:47 97.9 136/83 (100) 97.9 Physical Exam General appearance: Ill-appearing, in mild acute distress. HEENT: Exam shows: Normocephalic, atraumatic, PERRLA, EOMI Neck: Supple, no bruits Chest: Equal chest excursion bilaterally. Breath sounds rhonchi/rales. Heart: Rhythm: Regular rate; no murmur or gallop Abdomen: Exam shows: Soft, nontender, nondistended Musculoskeletal: No clubbing, no cyanosis, +2 lower extremity edema Dermatology: Skin warm, moist. Neurological: Exam shows: Alert and oriented x4, normal speech Available prior records, labs, EKG, rhythm strips reviewed and interpreted Labs/Diagnostic Data Labs Test 06/26/24 07:08 06/25/24 23:35 06/25/24 19:39 06/25/24 18:32 Range/Units White Blood Count 13.1 H 4.4-10.8 10^3/uL Red Blood Count 4.93 4.5-5.90 10^6/uL Hemoglobin 13.8 13.5-17.5 g/dL Hematocrit 41.6 41.0-53.0 % Mean Corpuscular Volume 84.3 80.0-100.0 fL Mean Corpuscular Hemoglobin 28.0 28.0-32.0 pg Mean Corpuscular Hemoglobin Concent 33.2 32.0-36.0 g/dL Red Cell Distribution Width 17.9 H 11.8-14.3 % Platelet Count 301 140-450 10^3/uL Mean Platelet Volume 8.1 6.9-10.8 fL Neutrophils (%) (Auto) 93.2 H 37.0-80.0 % Lymphocytes (%) (Auto) 4.8 L 10.0-50.0 % Monocytes (%) (Auto) 1.8 0.0-12.0 % Eosinophils (%) (Auto) 0.0 0.0-7.0 % Basophils (%) (Auto) 0.2 0.0-2.0 % Neutrophils # (Auto) 12.2 H 1.6-8.6 10 ^3/uL Lymphocytes # (Auto) 0.6 0.4-5.4 10 ^3/uL Monocytes # (Auto) 0.2 0-1.3 10 ^3/uL Eosinophils # (Auto) 0 0-0.8 10 ^3/uL Basophils # (Auto) 0 0-0.2 10 ^3/uL Nucleated Red Blood Cells 0.0 % Prothrombin Time 14.2 H 9.3-11.8 sec Prothrombin Time INR 1.38 H 0.9-1.15 Activated Partial Thromboplast Time 28.2 24.5-34.5 SEC Sodium Level 136 136-145 mmol/L Potassium Level 3.7 3.5-5.1 mmol/L Chloride Level 103 98-107 mmol/L Carbon Dioxide Level 23 20-31 mmol/L Anion Gap 10 5-15 Blood Urea Nitrogen 18 9-23 mg/dL Creatinine 0.93 0.700-1.30 mg/dL Glomerular Filtration Rate Calc 99 >90 mL/min BUN/Creatinine Ratio 19.4 10.0-20.0 Serum Glucose 137 H 74-106 mg/dL Calcium Level 8.5 L 8.7-10.4 mg/dL Total Bilirubin 0.9 0.2-1.0 mg/dL Aspartate Amino Transferase (AST) 135 H 13-40 U/L Alanine Aminotransferase (ALT) 211 H 7-40 U/L Alkaline Phosphatase 173 H 46-116 U/L Total Protein 7.0 5.7-8.2 g/dL Albumin 3.2 3.2-4.8 g/dL Influenza Type A Antigen Negative Negative Influenza Type B Antigen Positive Negative SARS-CoV-2 Antigen (Rapid) Negative NEGATIVE Troponin I High Sensitivity 61 *H </=54 ng/L Triglycerides Level 83 < 150 mg/dL Cholesterol Level 106 < 200 mg/dL LDL Cholesterol 85 < 100 mg/dL HDL Cholesterol 14 L 40-59 mg/dL Hemoglobin A1c 5.4 <5.7 % A1C B-Type Natriuretic Peptide 1784.98 0-100 pg/mL Test 06/25/24 18:00 Range/Units Urine Color Yellow Yellow Urine Clarity Clear Clear Urine pH 5.5 5.0-9.0 Urine Specific [place] 1.014 1.001-1.035 Urine Protein Trace H Negative Urine Ketones Negative Negative Urine Blood Negative Negative /uL Urine Nitrite Negative Negative Urine Bilirubin Negative Negative Urine Urobilinogen 3 H Negative mg/dL Urine Leukocyte Esterase Negative Negative /uL Urine RBC 1 0 - 3 /hpf Urine Microscopic WBC 4 H 0-3 /HPF Urine Squamous Epithelial Cells None seen <5 /hpf Urine Bacteria None seen None Seen /hpf Urine Glucose Normal Normal mg/dL Urine Opiates Screen Neg NEGATIVE Urine Fentanyl Screen Neg NEGATIVE Urine Barbiturates Screen Neg NEGATIVE Urine Phencyclidine Screen Neg NEGATIVE Urine Amphetamines Screen Pos NEGATIVE Urine Benzodiazepines Screen Neg NEGATIVE Urine Cocaine Screen Neg NEGATIVE Urine Cannabinoids Screen Neg NEGATIVE Assessment * Mildly elevated troponins - atypical chest pain. Likely demand ischemia setting of CHF exacerbation amphetamine abuse. Continue on aspirin, statin held due to elevated LFTs. * Acute on chronic HFrEF - continue aggressive diuresis with Lasix 40 mg IV b.i.d.. Monitor strict I&Os. Fluid restriction. Follow up echo. * HX Cardiomyopathy - previous EF 45% restarted on GDMT as patient was noncompliant. Titrate as tolerated. Follow up echo. * Acute hypoxic respiratory failure, CHF exacerbation, influenza B positive - continue diuresing. On bronchodilators, continued Tamiflu regimen. * CAD s/p MICHELLE LCX 2022 - continue aspirin and statin. * Medication noncompliance - advised compliance. * Amphetamine abuse - strongly advised against * Dyslipidemia - statin. * Elevated LFTs, - per primary team. Case Discussed with Dr Marcelo. Continue GDMT, continue aggressive diuresis. Follow up echo. Due to continued noncompliance and continued amphetamine use patient not a candidate for further ischemic workup. Continue medical management. Critical care, time spent: 44 minutes This medical document was created using an electronic medical record system with voice recognition software and computerized dictation system. Although this document has been carefully reviewed, there might still be some phonetic and typographical errors. Occasional wrong-word or ``sound-alike substitutions may have occurred due to the inherent limitations of voice recognition software. These areas are purely typographical due to imperfections of the software programs and do not reflect any compromise in the patient's medical care. Please read the chart carefully and recognize, using context, where these substitutions have occurred. Thank you for allowing me to participate in the management of this patient. The treatment plan was discussed with and agreed upon by patient/family including requesting consultants and ordering of imaging/procedures. Plan discussed with: Patient NYHA Physical activity limitations: Class4(Severe)discomfort Date of Service: Jun 26, 2024 Billing Provider: TC BATISTA Cardiology Common Codes: [id number] INP/OBS CARE (High), [id number] CARE 30-74 MIN TC BATISTA Jun 26, 2024 16:03
[2024-06-26] MEDS: METOPROLOL SUCCINATE XL 50 MG TAB PO ONE (16:40)
[2024-06-26] MEDS ORDERED: ATORVASTATIN 20 MG TAB PO SCH (22:00)
--- NOTE | 2024-06-26 23:41 | DVHINCON2 ---
Date Seen: Jun 26, 2024 Referring Physician Heaven Fuentes Reason for Consultation CHF History of Present Illness This is a 49-year-old male with PMH of CHF, cardiomyopathy, CAD s/p stent to LCX 07/2022, medication noncompliance, amphetamine abuse who presented to the ED with c/o increased lower extremity edema, worsening shortness of breath. Upon evaluation in the ED patient noted to be hypoxic on room air. Troponins trending 62, 61. BNP 1784. AST 250, ALT 270, alk-phos 197. Positive for influenza B. Chest x-ray showing mild pulmonary congestion, cardiomegaly. Patient endorses that he took all his medications already and is not taking anything at this time. Continues to smoke tobacco and occasional use of amphetamines. EKG reviewed and shows sinus tachycardia at 116 beats per minute, no significant ST and T-wave abnormality. Patient was admitted to the hospital. I am asked to consult on this patient. Past Medical History Cardiomyopathy, CHF, CAD s/p MICHELLE stent x1, medication noncompliance, amphetamine abuse, HTN, HLD, Past Surgical History Cardiac Catheterization s/p MICHELLE LCx 07/2022 Family History: Arthritis G8 MOTHER G8 FATHER Allergies: Coded Allergies: NO KNOWN ALLERGIES (Unverified , 07/23/22) Home Meds Active Scripts Aspirin (Aspir-Low) 81 Mg Tab, 81 MG PO DAILY for 90 Days, #90 TAB Prov:LAURA SUTHERLAND DRAFTER CASTINGS 07/24/22 Reported Medications Lisinopril (Lisinopril) 2.5 Mg Tab, 1 TAB PO DAILY, #30 TAB 5 Refills 06/26/24 Current Medications Current Medications Medications (Trade) Dose Ordered Sig/Pebbles Route PRN Reason Start Time Stop Time Status Last Admin Losartan Potassium (Cozaar Tablet) 50 mg BID PO 06/26/24 10:00 06/25/24 23:19 DC Losartan Potassium (Cozaar Tablet) 50 mg DAILY PO 06/26/24 10:00 06/25/24 23:44 DC Losartan Potassium (Cozaar Tablet) 25 mg DAILY PO 06/26/24 10:00 06/26/24 09:30 Ipratropium [place] (Atrovent Medneb) 0.5 mg Q6HWA NEB 06/26/24 06:00 06/26/24 13:50 Levalbuterol HCl (Xopenex Medneb) 0.625 mg Q6HR NEB 06/26/24 00:00 06/26/24 13:50 Furosemide (Lasix Injection) 40 mg BIDD IV 06/26/24 06:00 06/26/24 18:02 Enoxaparin Sodium (Lovenox) 40 mg DAILY SC 06/26/24 10:00 06/26/24 09:29 Aspirin 81 mg DAILY PO 06/26/24 10:00 06/26/24 09:29 Atorvastatin Calcium (Lipitor) 20 mg HS PO 06/26/24 22:00 06/25/24 23:57 DC Oseltamivir Phosphate (Tamiflu 75MG Capsule) 75 mg Q12HR PO 06/26/24 10:00 07/01/24 09:59 06/26/24 09:30 Amlodipine Besylate (Norvasc Tablet) 10 mg DAILY PO 06/26/24 10:00 06/26/24 09:30 Ceftriaxone Sodium 50 ml @ 100 mls/hr DAILY@09 IV 06/27/24 09:00 Azithromycin 250 ml @ 125 mls/hr DAILY IV 06/27/24 10:00 Metoprolol Succinate (Toprol Xl) 50 mg DAILY PO 06/27/24 10:00 Review of Systems Constitutional: No: Fever, Chills, Sweats, Weakness, Malaise, Other Eyes: No: Pain, Vision change, Conjunctivae inflammation, Eyelid inflammation, Other, Redness ENT: No: Ear pain, Ear discharge, Nose pain, Nose discharge, Nose congestion, Mouth pain, Mouth swelling, Throat pain, Throat swelling, Other Respiratory: No: Cough, Dry, , Wheezing, Hemoptysis, Pleuritic Pain, Sputum, Wheezing, Other positive: Shortness of breath, SOB with exertion Cardiovascular: ; No: Palpitations, Orthopnea, Paroxysmal Noc. , Lt Headedness, Other positive: Chest Pain, Dyspnea, Edema Gastrointestinal: No: Nausea, Vomiting, Abdominal Pain, Diarrhea, Constipation, Melena, Hematochezia, Other Genitourinary: No Dysuria, No Frequency, No Incontinence, No Hematuria, No Retention, No Other Musculoskeletal: neck pain; No: other, shoulder pain, arm pain, back pain, hand pain, leg pain, foot pain Skin: No: Rash, Lesions, Jaundice, Bruising, Other Neurological: Other (Dizziness, headache.); No: Weakness, Numbness, Incoordination, Change in speech, Confusion, Seizures Vital Signs Vital Signs Date Time Temp Pulse Resp B/P (MAP) Pulse Ox O2 Delivery O2 Flow Rate FiO2 06/26/24 21:00 97.2 110 24 112/78 (89) 96 97.2 06/26/24 19:16 Nasal Cannula 3.0 06/26/24 19:16 32 Physical Exam GENERAL: Awake, alert, oriented. Ill appearing. LUNGS: Decreased breath sounds. CARDIOVASCULAR: Heart sounds are good. ABDOMEN: Soft. EXT: +2 pitting edema. Labs/Diagnostic Data Labs Test 06/26/24 07:08 06/25/24 23:35 06/25/24 19:39 06/25/24 18:32 Range/Units White Blood Count 13.1 H 4.4-10.8 10^3/uL Red Blood Count 4.93 4.5-5.90 10^6/uL Hemoglobin 13.8 13.5-17.5 g/dL Hematocrit 41.6 41.0-53.0 % Mean Corpuscular Volume 84.3 80.0-100.0 fL Mean Corpuscular Hemoglobin 28.0 28.0-32.0 pg Mean Corpuscular Hemoglobin Concent 33.2 32.0-36.0 g/dL Red Cell Distribution Width 17.9 H 11.8-14.3 % Platelet Count 301 140-450 10^3/uL Mean Platelet Volume 8.1 6.9-10.8 fL Neutrophils (%) (Auto) 93.2 H 37.0-80.0 % Lymphocytes (%) (Auto) 4.8 L 10.0-50.0 % Monocytes (%) (Auto) 1.8 0.0-12.0 % Eosinophils (%) (Auto) 0.0 0.0-7.0 % Basophils (%) (Auto) 0.2 0.0-2.0 % Neutrophils # (Auto) 12.2 H 1.6-8.6 10 ^3/uL Lymphocytes # (Auto) 0.6 0.4-5.4 10 ^3/uL Monocytes # (Auto) 0.2 0-1.3 10 ^3/uL Eosinophils # (Auto) 0 0-0.8 10 ^3/uL Basophils # (Auto) 0 0-0.2 10 ^3/uL Nucleated Red Blood Cells 0.0 % Prothrombin Time 14.2 H 9.3-11.8 sec Prothrombin Time INR 1.38 H 0.9-1.15 Activated Partial Thromboplast Time 28.2 24.5-34.5 SEC Sodium Level 136 136-145 mmol/L Potassium Level 3.7 3.5-5.1 mmol/L Chloride Level 103 98-107 mmol/L Carbon Dioxide Level 23 20-31 mmol/L Anion Gap 10 5-15 Blood Urea Nitrogen 18 9-23 mg/dL Creatinine 0.93 0.700-1.30 mg/dL Glomerular Filtration Rate Calc 99 >90 mL/min BUN/Creatinine Ratio 19.4 10.0-20.0 Serum Glucose 137 H 74-106 mg/dL Calcium Level 8.5 L 8.7-10.4 mg/dL Total Bilirubin 0.9 0.2-1.0 mg/dL Aspartate Amino Transferase (AST) 135 H 13-40 U/L Alanine Aminotransferase (ALT) 211 H 7-40 U/L Alkaline Phosphatase 173 H 46-116 U/L Total Protein 7.0 5.7-8.2 g/dL Albumin 3.2 3.2-4.8 g/dL Influenza Type A Antigen Negative Negative Influenza Type B Antigen Positive Negative SARS-CoV-2 Antigen (Rapid) Negative NEGATIVE Troponin I High Sensitivity 61 *H </=54 ng/L Triglycerides Level 83 < 150 mg/dL Cholesterol Level 106 < 200 mg/dL LDL Cholesterol 85 < 100 mg/dL HDL Cholesterol 14 L 40-59 mg/dL Hemoglobin A1c 5.4 <5.7 % A1C B-Type Natriuretic Peptide 1784.98 0-100 pg/mL Test 06/25/24 18:00 Range/Units Urine Color Yellow Yellow Urine Clarity Clear Clear Urine pH 5.5 5.0-9.0 Urine Specific [place] 1.014 1.001-1.035 Urine Protein Trace H Negative Urine Ketones Negative Negative Urine Blood Negative Negative /uL Urine Nitrite Negative Negative Urine Bilirubin Negative Negative Urine Urobilinogen 3 H Negative mg/dL Urine Leukocyte Esterase Negative Negative /uL Urine RBC 1 0 - 3 /hpf Urine Microscopic WBC 4 H 0-3 /HPF Urine Squamous Epithelial Cells None seen <5 /hpf Urine Bacteria None seen None Seen /hpf Urine Glucose Normal Normal mg/dL Urine Opiates Screen Neg NEGATIVE Urine Fentanyl Screen Neg NEGATIVE Urine Barbiturates Screen Neg NEGATIVE Urine Phencyclidine Screen Neg NEGATIVE Urine Amphetamines Screen Pos NEGATIVE Urine Benzodiazepines Screen Neg NEGATIVE Urine Cocaine Screen Neg NEGATIVE Urine Cannabinoids Screen Neg NEGATIVE Microbiology Date/Time Source Procedure Growth Status 06/25/24 23:35 Nose MRSA Screen - Final Complete Assessment Mildly elevated troponins. Acute on chronic HFrEF. History of cardiomyopathy. Acute hypoxic respiratory failure. CHF exacerbation. Influenza B positive. CAD s/p MICHELLE LCX 2022. Medication noncompliance. Amphetamine abuse. Dyslipidemia. Elevated LFTs. Plan/Recommendation I agree with your ongoing assessment and care of plan. Patient has been seen by Layton Dye NP on my behalf, him and I discussed the plan with the patient. Telemetry reviewed. Due to continued noncompliance and continued amphetamine use patient not a candidate for further ischemic workup. Echocardiogram. Amlodipine, Losartan. Aspirin, Metoprolol. IV antibiotics as ordered. DVT prophylactics. Diretcs with Lasix Tamiflu. Additional plan as per the hospital course. Plan discussed with: Patient NYHA Physical activity limitations: Class4(Severe)discomfort Date of Service: Jun 26, 2024 Billing Provider: ANAND MANLEY MD Cardiology Common Codes: [id number] INP/OBS CARE (High), [id number] CARE 30-74 MIN ANAND MANLEY MD Jun 26, 2024 22:31
[2024-06-27] VITALS (17 sets, daily range): BP systolic 103–139; BP diastolic 58–94; PULSE 81–104; RESP 16–20; TEMP 97.4–97.9; O2SAT 91–100
--- NOTE | 2024-06-27 01:48 | DVHSR ---
APPROVED REPORT EXAM: Two-dimensional and M-mode echocardiogram with Doppler and color Doppler. Blood Pressure: 145/105 mmHg INDICATION CHF RISK FACTORS Height: 6'2", Weight: 216 DIMENSIONS LVDd7.1 (3.8-5.7cm)LA (2D)4.5 (1.9-4.0cm)Aortic Root4.0 (2.0-3.7cm) LVDs6.6 (2.5-4.0cm)LA (MM) (1.9-4.0cm)Aortic Cusp Exc2.1 (1.5-2.0cm) EF (%) 15.0 (55-70%)Rt. Atrium4.4 (1.9-4.0cm)Asc. Aorta cm IVSd1.2 (0.7-1.1cm)RV (D)4.5 (1.8-2.4cm) PWd1.0 (0.7-1.1cm) Mitral Valve MitralMitral Stenosis E wave1.02m/sMV Mean GR.mmHg A wave0.71m/sMV Peak GR.mmHg E/A ratio1.42D MVAcm2 DECEL [id number] 1/2 Timems Aortic Valve Aortic ValveAortic Stenosis V11.14m/Hattie Mean GR.5mmHg V21.52m/Hattie Peak GR.9mmHg LVOT Diameter2.3 (1.8-2.4cm)Doppler AVA3.11cm2 Pulmonic Valve V20.87m/s Tricuspid Valve TR Velocity2.90m/s [id number] Conclusion REMARKABLY DILATED ALL CARDIAC CHAMBERS SEVERE LV AND RV HYPOKINESIS LV EF IS ONLY 15% SEVERE MR NORMAL VALVES NO EFFUSION
--- NOTE | 2024-06-27 08:32 | DVHPN2 ---
Reviewed: Care Plan, H&P, Labs, Medications, Previous Orders, Radiology Changes from previous H/P or p: No Changes Objective Vitals Vital Signs Date Time Temp Pulse Resp B/P (MAP) Pulse Ox O2 Delivery O2 Flow Rate FiO2 06/27/24 08:04 81 16 98 Nasal Cannula* 3 32 06/27/24 06:44 134/89 06/27/24 05:00 97.8 97.8 Intake/Output Intake and Output 06/27/24 07:00 Intake Total 1670 ml Output Total 1600 ml Balance 70 ml Intake Oral 1370 ml IV Total 300 ml Output Urine Total 1600 ml # Voids 3 Medications Current Medications Medications Dose Ordered Sig/Pebbles Route Start Time Stop Time Status Last Admin Dose Admin Losartan Potassium 25 mg DAILY PO 06/26/24 10:00 06/26/24 09:30 25 MG Ipratropium [place] 0.5 mg Q6HWA [facility] 06/26/24 06:00 06/27/24 06:19 0.5 MG Levalbuterol HCl 0.625 mg Q6HR NEB 06/26/24 00:00 06/27/24 06:19 0.625 MG Furosemide 40 mg BIDD IV 06/26/24 06:00 06/27/24 06:44 40 MG Enoxaparin Sodium 40 mg DAILY SC 06/26/24 10:00 06/26/24 09:29 40 MG Aspirin 81 mg DAILY PO 06/26/24 10:00 06/26/24 09:29 81 MG Oseltamivir Phosphate 75 mg Q12HR PO 06/26/24 10:00 07/01/24 09:59 06/26/24 22:39 75 MG Amlodipine Besylate 10 mg DAILY PO 06/26/24 10:00 06/26/24 09:30 10 MG Ceftriaxone Sodium 50 ml @ 100 mls/hr DAILY@09 IV 06/27/24 09:00 Azithromycin 250 ml @ 125 mls/hr DAILY IV 06/27/24 10:00 Metoprolol Succinate 50 mg DAILY PO 06/27/24 10:00 Laboratory Results Laboratory Tests 06/26/24 07:08 Urinalysis Test 06/25/24 18:00 Urine Color Yellow (Yellow) Urine Clarity Clear (Clear) Urine pH 5.5 (5.0-9.0) Urine Specific [place] 1.014 (1.001-1.035) Urine Protein Trace (Negative) H Urine Ketones Negative (Negative) Urine Blood Negative /uL (Negative) Urine Nitrite Negative (Negative) Urine Bilirubin Negative (Negative) Urine Urobilinogen 3 mg/dL (Negative) H Urine Leukocyte Esterase Negative /uL (Negative) Urine RBC 1 /hpf (0 - 3) Urine Microscopic WBC 4 /HPF (0-3) H Urine Squamous Epithelial Cells None seen /hpf (<5) Urine Bacteria None seen /hpf (None Seen) Urine Glucose Normal mg/dL (Normal) Microbiology Microbiology Date/Time Source Procedure Growth Status 06/25/24 23:55 Blood Blood Culture - Preliminary NO GROWTH AFTER 24 HOURS OF INCUBATION. Resulted 06/25/24 23:35 Nose MRSA Screen - Final Complete Labs and/or images reviewed: Labs reviewed by me, Image(s) reviewed by me Assessment/Plan Assessment/Plan Acute hypoxic respiratory failure , likely due to failure CHF exacerbation/influenza Acute on chronic systolic/diastolic congestive heart failure ejection fraction 15% cardiology consult for Dr.M Marcelo appreciated not a candidate for ischemia workup secondary to continued amphetamine abuse Influenza type B pneumonia : Tamiflu Possible community-acquired pneumonia: Rocephin azithromycin Hypertensive urgency Transaminitis Chronic current smoking: Counseling Chronic current marijuana abuse: Counseling Polysubstance abuse (methamphetamine and tobacco) Noncompliance Patient does not have a PCP: Social service consult Time spent 40 minute Plan discussed with: Patient My Orders Orders - SELENE MATTHEWS MD Procedure Category Date Status Time * Cardiology Consult CONS 06/26/24 Transmitted 13:13 Ceftriaxone 1gm/50ml PHA 06/27/24 In Process D5w (Rocephin) 09:00 Azithromycin 500mg/ PHA 06/27/24 In Process 250ml (Zithromax 50 10:00 * [place] CONS 06/26/24 Transmitted Consult Date of Service: Jun 27, 2024 Billing Provider: SELENE MATTHEWS MD Common Visit Codes: [id number] INP/OBS CARE(HIGH) SELENE MATTHEWS MD Jun 27, 2024 08:32
[2024-06-27] MEDS: cefTRIAXone 1GM/50ML D5W 50 ML IV SCH (08:46)
[2024-06-27] MEDS: AZITHROMYCIN 500MG/ 250ML 250 ML IV SCH (10:59)
[2024-06-27] MEDS: METOPROLOL SUCCINATE XL 50 MG TAB PO SCH (11:00)
--- NOTE | 2024-06-27 21:59 | DVHPN2 ---
Progress Note - Dictate Date Seen: Jun 27, 2024 Medical Necessity Reason Pt with a Central, PICC or Fol: No Subjective Patient was seen and evaluated in follow up. Patient is on 3 LPM NC. The patient is receding Tamiflu for influenza. Echocardiogram shows an EF of only 15%. Telemetry reviewed. vital signs Vital Sign Date Time Temp Pulse Resp B/P (MAP) Pulse Ox O2 Delivery O2 Flow Rate FiO2 06/27/24 20:00 Nasal Cannula* 3 32 06/27/24 19:24 104 16 98 06/27/24 18:55 119/58 06/27/24 16:46 97.5 97.5 Total Intake and Output 06/26/24 06/26/24 06/27/24 15:00 23:00 07:00 Intake Total 1220 ml 450 ml Output Total 1600 ml Balance 1220 ml -1150 ml medications Current Medications Medications Dose Ordered Sig/Pebbles Route Start Time Stop Time Status Last Admin Dose Admin Losartan Potassium 25 mg DAILY PO 06/26/24 10:00 06/27/24 11:00 25 MG Ipratropium [place] 0.5 mg Q6HWA NEB 06/26/24 06:00 06/27/24 19:18 0.5 MG Levalbuterol HCl 0.625 mg Q6HR NEB 06/26/24 00:00 06/27/24 19:18 0.625 MG Furosemide 40 mg BIDD IV 06/26/24 06:00 06/27/24 18:55 40 MG Enoxaparin Sodium 40 mg DAILY SC 06/26/24 10:00 06/27/24 10:59 40 MG Aspirin 81 mg DAILY PO 06/26/24 10:00 06/27/24 11:01 81 MG Oseltamivir Phosphate 75 mg Q12HR PO 06/26/24 10:00 07/01/24 09:59 06/27/24 11:00 75 MG Amlodipine Besylate 10 mg DAILY PO 06/26/24 10:00 06/27/24 11:00 10 MG Ceftriaxone Sodium 50 ml @ 100 mls/hr DAILY@09 IV 06/27/24 09:00 06/27/24 08:46 100 MLS/HR Azithromycin 250 ml @ 125 mls/hr DAILY IV 06/27/24 10:00 06/27/24 10:59 125 MLS/HR Metoprolol Succinate 50 mg DAILY PO 06/27/24 10:00 06/27/24 11:00 50 MG objective GENERAL: Awake, alert, oriented. Ill appearing. LUNGS: Decreased breath sounds. CARDIOVASCULAR: Heart sounds are good. ABDOMEN: Soft. EXT: +2 pitting edema. laboratory and microbiology Laboratory Tests 06/26/24 07:08 Test 06/26/24 07:08 Range/Units Serum Glucose 137 H 74-106 mg/dL Problem List Mildly elevated troponins. Acute on chronic HFrEF. History of cardiomyopathy. Acute hypoxic respiratory failure. CHF exacerbation. Influenza B positive. CAD s/p MICHELLE LCX 2022. Medication noncompliance. Amphetamine abuse. Dyslipidemia. Elevated LFTs. Assessment/Plan Continued all current supportive medical care. Amlodipine, Losartan. Aspirin, Metoprolol. IV antibiotics as ordered. DVT prophylactics. Diuretics with Lasix Tamiflu. Additional plan as per the hospital course. Plan discussed with: Patient ANAND MANLEY MD Jun 27, 2024 21:08
[2024-06-28 01:00] VITALS: BP 137/88; PULSE 106; RESP 18; TEMP 97.3; O2SAT 95
[2024-06-28 05:00] VITALS: BP 123/88; PULSE 91; RESP 19; TEMP 97.6; O2SAT 98
[2024-06-28 05:56] VITALS: PULSE 103; RESP 18; O2SAT 98
[2024-06-28 06:03] VITALS: PULSE 103; RESP 18; O2SAT 100
[2024-06-28 08:00] VITALS: PULSE 96; RESP 18
[2024-06-28 08:30] LABS: Hepatitis B Surface Antigen Negative (Negative)
[2024-06-28 08:51] LABS: Hepatitis A Ab IgM Negative; Hepatitis B Core IgM Negative (Negative); Hepatitis C Antibody Negative (Negative)
[2024-06-28 09:00] VITALS: BP 145/99; PULSE 103; RESP 20; TEMP 98.7; O2SAT 95
--- NOTE | 2024-06-28 09:36 | DVHPN2 ---
Reviewed: Care Plan, H&P, Labs, Medications, Previous Orders, Radiology Changes from previous H/P or p: No Changes Objective Vitals Vital Signs Date Time Temp Pulse Resp B/P (MAP) Pulse Ox O2 Delivery O2 Flow Rate FiO2 06/28/24 08:00 96 18 Nasal Cannula* 3 32 06/28/24 06:03 100 06/28/24 05:50 123/88 06/28/24 05:00 97.6 97.6 Intake/Output Intake and Output 06/28/24 07:00 Intake Total 4872 ml Output Total 7600 ml Balance -2728 ml Intake Oral 4572 ml IV Total 300 ml Output Urine Total 7600 ml Medications Current Medications Medications Dose Ordered Sig/Pebbles Route Start Time Stop Time Status Last Admin Dose Admin Losartan Potassium 25 mg DAILY PO 06/26/24 10:00 06/27/24 11:00 25 MG Ipratropium [place] 0.5 mg Q6HWA NEB 06/26/24 06:00 06/28/24 05:56 0.5 MG Levalbuterol HCl 0.625 mg Q6HR NEB 06/26/24 00:00 06/28/24 05:56 0.625 MG Furosemide 40 mg BIDD IV 06/26/24 06:00 06/28/24 05:50 40 MG Enoxaparin Sodium 40 mg DAILY SC 06/26/24 10:00 06/27/24 10:59 40 MG Aspirin 81 mg DAILY PO 06/26/24 10:00 06/27/24 11:01 81 MG Oseltamivir Phosphate 75 mg Q12HR PO 06/26/24 10:00 07/01/24 09:59 06/27/24 21:03 75 MG Amlodipine Besylate 10 mg DAILY PO 06/26/24 10:00 06/27/24 11:00 10 MG Ceftriaxone Sodium 50 ml @ 100 mls/hr DAILY@09 IV 06/27/24 09:00 06/27/24 08:46 100 MLS/HR Azithromycin 250 ml @ 125 mls/hr DAILY IV 06/27/24 10:00 06/27/24 10:59 125 MLS/HR Metoprolol Succinate 50 mg DAILY PO 06/27/24 10:00 06/27/24 11:00 50 MG Laboratory Results Laboratory Tests 06/26/24 07:08 Urinalysis Test 06/25/24 18:00 Urine Color Yellow (Yellow) Urine Clarity Clear (Clear) Urine pH 5.5 (5.0-9.0) Urine Specific [place] 1.014 (1.001-1.035) Urine Protein Trace (Negative) H Urine Ketones Negative (Negative) Urine Blood Negative /uL (Negative) Urine Nitrite Negative (Negative) Urine Bilirubin Negative (Negative) Urine Urobilinogen 3 mg/dL (Negative) H Urine Leukocyte Esterase Negative /uL (Negative) Urine RBC 1 /hpf (0 - 3) Urine Microscopic WBC 4 /HPF (0-3) H Urine Squamous Epithelial Cells None seen /hpf (<5) Urine Bacteria None seen /hpf (None Seen) Urine Glucose Normal mg/dL (Normal) Microbiology Microbiology Date/Time Source Procedure Growth Status 06/25/24 23:55 Blood Blood Culture - Preliminary NO GROWTH AFTER 48 HOURS OF INCUBATION. Resulted 06/25/24 23:35 Nose MRSA Screen - Final Complete Labs and/or images reviewed: Labs reviewed by me, Image(s) reviewed by me Assessment/Plan Assessment/Plan Acute hypoxic respiratory failure , likely due to CHF exacerbation/influenza Acute on chronic systolic/diastolic congestive heart failure ejection fraction 15% cardiology consult for Dr.M Marcelo appreciated not a candidate for ischemia workup secondary to continued amphetamine abuse Influenza type B pneumonia : Tamiflu Possible community-acquired pneumonia: Rocephin azithromycin Hypertensive urgency Transaminitis Chronic current smoking: Counseling Chronic current marijuana abuse: Counseling Polysubstance abuse (methamphetamine and tobacco) Noncompliance Patient does not have a PCP: Social service consult Time spent 40 minute Patient insistent to be discharged today Plan discussed with: Patient Date of Service: Jun 28, 2024 Billing Provider: SELENE MATTHEWS MD Common Visit Codes: [id number] INP/OBS CARE(HIGH) SELENE MATTHEWS MD Jun 28, 2024 09:36
[2024-06-28] MEDS ORDERED: AZIT500T66 PO (09:44)
[2024-06-28] MEDS ORDERED: OSEL75CA5 PO (09:44)
[2024-06-28] MEDS ORDERED: AMLO1TAB23 PO (09:47)
[2024-06-28] MEDS ORDERED: METO25TA93 PO (09:47)
[2024-06-28] MEDS ORDERED: ALBUAER3 IN (09:48)
--- NOTE | 2024-06-28 09:51 | DVHDS2 ---
Discharge Summary Date of Admission Jun 25, 2024 at 23:39 Date of Discharge: Jun 28, 2024 Admitting Diagnosis Shortness of breath Wounds: None Labs/Diagnostic Data: Laboratory Results Test 06/26/24 07:08 06/25/24 23:35 06/25/24 19:39 06/25/24 18:32 White Blood Count 13.1 10^3/uL (4.4-10.8) Red Blood Count 4.93 10^6/uL (4.5-5.90) Hemoglobin 13.8 g/dL (13.5-17.5) Hematocrit 41.6 % (41.0-53.0) Mean Corpuscular Volume 84.3 fL (80.0-100.0) Mean Corpuscular Hemoglobin 28.0 pg (28.0-32.0) Mean Corpuscular Hemoglobin Concent 33.2 g/dL (32.0-36.0) Red Cell Distribution Width 17.9 % (11.8-14.3) Platelet Count 301 10^3/uL (140-450) Mean Platelet Volume 8.1 fL (6.9-10.8) Neutrophils (%) (Auto) 93.2 % (37.0-80.0) Lymphocytes (%) (Auto) 4.8 % (10.0-50.0) Monocytes (%) (Auto) 1.8 % (0.0-12.0) Eosinophils (%) (Auto) 0.0 % (0.0-7.0) Basophils (%) (Auto) 0.2 % (0.0-2.0) Neutrophils # (Auto) 12.2 10 ^3/uL (1.6-8.6) Lymphocytes # (Auto) 0.6 10 ^3/uL (0.4-5.4) Monocytes # (Auto) 0.2 10 ^3/uL (0-1.3) Eosinophils # (Auto) 0 10 ^3/uL (0-0.8) Basophils # (Auto) 0 10 ^3/uL (0-0.2) Nucleated Red Blood Cells 0.0 % Prothrombin Time 14.2 sec (9.3-11.8) Prothrombin Time INR 1.38 (0.9-1.15) Activated Partial Thromboplast Time 28.2 SEC (24.5-34.5) Sodium Level 136 mmol/L (136-145) Potassium Level 3.7 mmol/L (3.5-5.1) Chloride Level 103 mmol/L (98-107) Carbon Dioxide Level 23 mmol/L (20-31) Anion Gap 10 (5-15) Blood Urea Nitrogen 18 mg/dL (9-23) Creatinine 0.93 mg/dL (0.700-1.30) Glomerular Filtration Rate Calc 99 mL/min (>90) BUN/Creatinine Ratio 19.4 (10.0-20.0) Serum Glucose 137 mg/dL (74-106) Calcium Level 8.5 mg/dL (8.7-10.4) Total Bilirubin 0.9 mg/dL (0.2-1.0) Aspartate Amino Transferase (AST) 135 U/L (13-40) Alanine Aminotransferase (ALT) 211 U/L (7-40) Alkaline Phosphatase 173 U/L (46-116) Total Protein 7.0 g/dL (5.7-8.2) Albumin 3.2 g/dL (3.2-4.8) Hepatitis A IgM Antibody Negative Hepatitis B Surface Antigen Negative (Negative) Hepatitis B Core IgM Antibody Negative (Negative) Hepatitis C Antibody Negative (Negative) Influenza Type A Antigen Negative (Negative) Influenza Type B Antigen Positive (Negative) SARS-CoV-2 Antigen (Rapid) Negative (NEGATIVE) Troponin I High Sensitivity 61 ng/L (</=54) Triglycerides Level 83 mg/dL (< 150) Cholesterol Level 106 mg/dL (< 200) LDL Cholesterol 85 mg/dL (< 100) HDL Cholesterol 14 mg/dL (40-59) Hemoglobin A1c 5.4 % A1C (<5.7) B-Type Natriuretic Peptide 1784.98 pg/mL (0-100) Test 06/25/24 18:00 Urine Color Yellow (Yellow) Urine Clarity Clear (Clear) Urine pH 5.5 (5.0-9.0) Urine Specific [place] 1.014 (1.001-1.035) Urine Protein Trace (Negative) Urine Ketones Negative (Negative) Urine Blood Negative /uL (Negative) Urine Nitrite Negative (Negative) Urine Bilirubin Negative (Negative) Urine Urobilinogen 3 mg/dL (Negative) Urine Leukocyte Esterase Negative /uL (Negative) Urine RBC 1 /hpf (0 - 3) Urine Microscopic WBC 4 /HPF (0-3) Urine Squamous Epithelial Cells None seen /hpf (<5) Urine Bacteria None seen /hpf (None Seen) Urine Glucose Normal mg/dL (Normal) Urine Opiates Screen Neg (NEGATIVE) Urine Fentanyl Screen Neg (NEGATIVE) Urine Barbiturates Screen Neg (NEGATIVE) Urine Phencyclidine Screen Neg (NEGATIVE) Urine Amphetamines Screen Pos (NEGATIVE) Urine Benzodiazepines Screen Neg (NEGATIVE) Urine Cocaine Screen Neg (NEGATIVE) Urine Cannabinoids Screen Neg (NEGATIVE) Other Laboratory Tests 06/26/24 07:08 Brief Hx & Hospital Course: 1-year-old male with a history of hypertension chronic current smoker chronic marijuana abuse chronic methamphetamine abuse came in for shortness of breaths found to have acute on chronic systolic congestive heart failure ejection fraction 15 percent cardiology consult by Dr. Marcelo patient had hypertensive emergency placed on amlodipine and metoprolol succinate found positive for type B flu flu treated with the Tamiflu also community-acquired pneumonia treated with Rocephin azithromycin albuterol Atrovent med-nebs patient feeling better advised the patient to stayed back for two more days for IV antibiotics but he was insisting to be discharged today on p.o. medications. Discharged home. Advised to quit smoking using marijuana and methamphetamine Per Cardiology not a candidate for AICD because of continued methamphetamine abuse. Consults/Reason for consult Cardiology Dr. Marcelo Operations or Procedures None Condition at Discharge: Fair Final Diagnosis/Problems List Acute hypoxic respiratory failure , likely due to CHF exacerbation/influenza Acute on chronic systolic/diastolic congestive heart failure ejection fraction 15% cardiology consult for Dr.M Marcelo appreciated not a candidate for ischemia workup secondary to continued amphetamine abuse Influenza type B pneumonia : Tamiflu Possible community-acquired pneumonia: Rocephin azithromycin Hypertensive urgency Transaminitis Chronic current smoking: Counseling Chronic current marijuana abuse: Counseling Polysubstance abuse (methamphetamine and tobacco) Discharge Disposition: Home Discharge Instruct/Medications Diet: Cardiac 2g Na,low cholest Activity: Light activity Follow Up/Referral: Follow up with the primary Medications: Transmitted to the pharmacy 39 (Time taken for discharge summary 39 minutes) Discharge Statement: "Patient was advised to return to the ER or call 911 if any headaches, dizziness, shortness of breath, chest pain, abdominal pain, bleeding, fevers, or worsening of medical condition. Patient was counseled about treatment plan, medications, possible side effects, patientverbalized understanding. All questions were answered to the best of my ability. This discharge took greater then 30 minutes in planning, reviewing documentation, counseling the patient, and discussing with other team members." ASSESSMENT ASSESSMENT Hospital Course Improved Assessment Acute hypoxic respiratory failure , likely due to CHF exacerbation/influenza Acute on chronic systolic/diastolic congestive heart failure ejection fraction 15% cardiology consult for Dr.M Marcelo appreciated not a candidate for ischemia workup secondary to continued amphetamine abuse Influenza type B pneumonia : Tamiflu Possible community-acquired pneumonia: Rocephin azithromycin Hypertensive urgency Transaminitis Chronic current smoking: Counseling Chronic current marijuana abuse: Counseling Polysubstance abuse (methamphetamine and tobacco) Date of Service: Jun 28, 2024 Billing Provider: SELENE MATTHEWS MD Common Visit Codes: [id number] DISCH DAY >30min SELENE MATTHEWS MD Jun 28, 2024 09:51
--- NOTE | 2024-06-28 11:15 | DVHPN2 ---
Progress Note - Dictate Date Seen: Jun 28, 2024 Medical Necessity Reason Pt with a Central, PICC or Fol: No Subjective Patient was seen and evaluated in follow up. No overnight events. Patient refusing to wear tele and pulse ox this morning. He is on 2-3 LPM NC. Patient denies any cardiac symptoms. Patient is cardiac stable for discharge. Telemetry reviewed. vital signs Vital Sign Date Time Temp Pulse Resp B/P (MAP) Pulse Ox O2 Delivery O2 Flow Rate FiO2 06/28/24 09:00 98.7 103 20 145/99 (114) 95 98.7 06/28/24 08:00 Nasal Cannula* 3 32 Total Intake and Output 06/27/24 06/27/24 06/28/24 15:00 23:00 07:00 Intake Total 50 ml 2786 ml 2036 ml Output Total 5400 ml 2200 ml Balance 50 ml -2614 ml -164 ml medications Current Medications Medications Dose Ordered Sig/Pebbles Route Start Time Stop Time Status Last Admin Dose Admin Losartan Potassium 25 mg DAILY PO 06/26/24 10:00 06/27/24 11:00 25 MG Ipratropium [place] 0.5 mg Q6HWA NEB 06/26/24 06:00 06/28/24 05:56 0.5 MG Levalbuterol HCl 0.625 mg Q6HR NEB 06/26/24 00:00 06/28/24 05:56 0.625 MG Furosemide 40 mg BIDD IV 06/26/24 06:00 06/28/24 05:50 40 MG Enoxaparin Sodium 40 mg DAILY SC 06/26/24 10:00 06/27/24 10:59 40 MG Aspirin 81 mg DAILY PO 06/26/24 10:00 06/27/24 11:01 81 MG Oseltamivir Phosphate 75 mg Q12HR PO 06/26/24 10:00 07/01/24 09:59 06/27/24 21:03 75 MG Amlodipine Besylate 10 mg DAILY PO 06/26/24 10:00 06/27/24 11:00 10 MG Ceftriaxone Sodium 50 ml @ 100 mls/hr DAILY@09 IV 06/27/24 09:00 06/27/24 08:46 100 MLS/HR Azithromycin 250 ml @ 125 mls/hr DAILY IV 06/27/24 10:00 06/27/24 10:59 125 MLS/HR Metoprolol Succinate 50 mg DAILY PO 06/27/24 10:00 06/27/24 11:00 50 MG objective GENERAL: Awake, alert, oriented. Ill appearing. LUNGS: Decreased breath sounds. CARDIOVASCULAR: Heart sounds are good. ABDOMEN: Soft. EXT: +2 pitting edema. laboratory and microbiology Laboratory Tests 06/26/24 07:08 Test 06/26/24 07:08 Range/Units Serum Glucose 137 H 74-106 mg/dL Problem List Mildly elevated troponins. Acute on chronic HFrEF. History of cardiomyopathy. Acute hypoxic respiratory failure. CHF exacerbation. Influenza B positive. CAD s/p MICHELLE LCX 2022. Medication noncompliance. Amphetamine abuse. Dyslipidemia. Elevated LFTs. Assessment/Plan Continued all current supportive medical care. Amlodipine, Losartan. Aspirin, Metoprolol. IV antibiotics as ordered. DVT prophylactics. Diuretics with Lasix Tamiflu. Additional plan as per the hospital course. Plan discussed with: Patient ANAND MANLEY MD Jun 28, 2024 11:15
== END 2024-06-28 10:47 | disposition left against medical advice (07) | DRG 133 ==
LOC: ER 17:59 → OVERFLOW 23:39 → TELE-EAST 06-26 02:16
PROVIDERS: ADMIT Family Medicine; ATTEND Family Medicine
DX: J96.01 Acute respiratory failure with hypoxia (principal); I50.43 Acute on chronic combined systolic (congestive) and diastolic (congestive) heart failure; J18.9 Pneumonia, unspecified organism; I11.0 Hypertensive heart disease with heart failure; J44.0 Chronic obstructive pulmonary disease with (acute) lower respiratory infection; F15.10 Other stimulant abuse, uncomplicated; R74.01 Elevation of levels of liver transaminase levels; Z20.822 Contact with and (suspected) exposure to COVID-19; Z53.29 Procedure and treatment not carried out because of patient's decision for other reasons; J10.01 Influenza due to other identified influenza virus with the same other identified influenza virus pneumonia; F12.10 Cannabis abuse, uncomplicated; I25.10 Atherosclerotic heart disease of native coronary artery without angina pectoris; E78.5 Hyperlipidemia, unspecified; F17.210 Nicotine dependence, cigarettes, uncomplicated; J44.1 Chronic obstructive pulmonary disease with (acute) exacerbation; I16.1 Hypertensive emergency; Z91.199 Patient's noncompliance with other medical treatment and regimen due to unspecified reason; Z95.5 Presence of coronary angioplasty implant and graft; Z71.6 Tobacco abuse counseling; Z79.82 Long term (current) use of aspirin; Z79.02 Long term (current) use of antithrombotics/antiplatelets; Z79.899 Other long term (current) drug therapy
CPT/HCPCS: 36415; 71045; 76705; 80053; 80061; 80074; 80307; 81001; 83036; 83880; 84484; 85025; 85610; 85730; 87040; 87081; 87426; 87804; 93005; 93306; 94640; 96374; 96375; 99291; G0378